=== PATIENT | female | born 1990 | race Caucasian/White ===

== ENCOUNTER 2016-08-29 12:02 | Emergency (ER) | payer MEDICAID ==
[~2016-08-29] VITALS: Ht 152.4 cm; Wt 49.9 kg
[~2016-08-29 12:02] MED LIST: CALCIUM500 MG PO; FERROUS SULFAT325 M1 PO; FOLATE1 MG PO; MOTRIN800 MG PO; PRENATAL VITAMI1 T10 PO
--- NOTE | 2016-08-29 12:02 | NUR ---
Patient BIBA ACLS, triaged by RN. Waiting for an available bed.
[2016-08-29 12:11] VITALS: BP 129/67
[2016-08-29] MEDS ORDERED: NACL 0.9% 1,000 ML IV SCH (12:13)
[2016-08-29] MEDS ORDERED: ONDANSETRON 4 MG/2 ML VIAL IVP ONE (12:15)
--- NOTE | 2016-08-29 12:20 | NUR ---
PT BIBA - WITNESS SEIZURE LASTING APPROX 1 MIN. PER EMS PT HAD A TONIC CLONIC SEIZURE;PT DENIES ANY PAIN RT NOW;PER EMS PT ADMITTED USING COCAINE;DENIES CP/SOB/N/V/AT THIS TIME;DENIES ANY MEDICAL HX;AAOX4;RAZIA AVCUTE DISTRESS NOTED AT THIS TIME;HOIB ELEVATED;SIDERAILS PADDING APPLIED;SAFETY MEASURES DONE;MD MADE AWARE OF PT'S CONDITION.
--- NOTE | 2016-08-29 12:36 | NUR ---
Patient transferred to bed 6. RN evaluating patient at bedside.
--- NOTE | 2016-08-29 13:46 | NUR ---
PT LYING ON BED;NO ACUTE DISTRESS NOTED AT THIS TIME;WILL CONTINUE TO MONITOR PT.
--- NOTE | 2016-08-29 14:26 | NUR ---
PT AMBULATED TO RESTROOM;NO ACUTE DISTRESS NOTED AT THIS TIME;WILL CONTINUE TO MONITOR PT.
--- NOTE | 2016-08-29 14:37 | NUR ---
PT RESTING ON BED;TALKING TO HER BF AT BEDSIDE ;NO ACUTE DISTRESS NOTED AT THIS TIME;WILL CONTINUE TO MONITOR PT.
[2016-08-29 15:02] VITALS: BP 126/68
== END 2016-08-29 15:00 | disposition home or self-care (01) ==
LOC: MED 12:02
DX: G40.909 Epilepsy, unspecified, not intractable, without status epilepticus (principal); F14.10 Cocaine abuse, uncomplicated; F12.10 Cannabis abuse, uncomplicated
CPT/HCPCS: 36415; 70450; 80053; 80305; 81001; 81025; 82150; 83690; 84146; 85025; 96361; 96374; 99285; J2405; J7030

== ENCOUNTER 2018-02-11 10:57 | Emergency (ER) | payer MEDICAID ==
[~2018-02-11] VITALS: Ht 147.3 cm; Wt 54.4 kg
--- NOTE | 2018-02-11 11:03 | NUR ---
PT AMBULATED TO ER BED 06
[2018-02-11 11:06] VITALS: BP 116/62
--- NOTE | 2018-02-11 11:12 | NUR ---
PATIENT c/o left inferior breast burning type pain x 1 wk; denies injury or discharge. PATIENT STATES PAIN OF 7/10 AT THIS TIME; VSS; PATIENT POSITIONED FOR COMFORT; HOB ELEVATED; BEDRAILS UP X1; BED DOWN. ER MD MADE AWARE OF PT STATUS.
[2018-02-11] MEDS ORDERED: KETOROLAC 60 MG/2 ML VIAL IM ONE (12:15)
[2018-02-11 12:42] VITALS: BP 116/62
== END 2018-02-11 12:43 | disposition home or self-care (01) ==
LOC: MED 10:57
DX: N64.4 Mastodynia (principal)
CPT/HCPCS: 96372; 99283; J1885

== ENCOUNTER 2020-10-01 19:05 | Emergency (ER) | payer MEDICAID, SELFPAY ==
[~2020-10-01] VITALS: Ht 149.9 cm; Wt 58.5 kg
[2020-10-01 19:16] VITALS: BP 131/99
[2020-10-01 19:35] VITALS: BP 141/96
--- NOTE | 2020-10-01 19:43 | NUR ---
ARRIVED TO PATIENT AT BEDSIDE, PATIENT ALERT AND TRACKING WITH EYES, GCS 15. NO COMPLAINTS OF PAIN. PATIENT STATED HAVING AN OCCASSIONAL PRODUCTIVE COUGH WITH A HEADACE FOR X3 DAYS AND GENERALIZED WEAKNESS. PATIENT ON ROOM AIR, DENIES ALL HISTORY AND HOME MEDICATIONS. PATIENT IN NO OBVIOUS SIGNS OF DISTRESS, VS STABLE, WILL CONTINUE TO CLOSELY MONITOR AND FREQUENTLY ROUND. WILL CARRY OUT ORDERS FROM MD.
[2020-10-01] MEDS ORDERED: ALBUTEROL HFA MDI 90 MCG/ACTUATION 8 GM INH ONE (20:15)
[2020-10-01] MEDS ORDERED: predniSONE 20 MG TAB PO ONE (20:55)
[2020-10-01] MEDS ORDERED: ALBUTEROL SULFATE/IPRATROPIU 3 ML SOL IH ONE (21:10)
--- NOTE | 2020-10-01 21:23 | NUR ---
HHN TX GIVEN ORDERED. PT TOLERATED TX WELL. NO ADVERSE REACTION. SPO2 99% ON ROOM AIR. WILL CONTINUE TO MONITOR PT.
[2020-10-01] MEDS ORDERED: PRED20TA5 PO (21:58)
[2020-10-01] MEDS ORDERED: ALBU0.0912 IH (21:58)
--- NOTE | 2020-10-01 22:18 | NUR ---
Patient discharged with v/s stable. Written and verbal after care instructions given and explained. Patient alert, oriented and verbalized understanding of instructions. Ambulatory with steady gait. All questions addressed prior to discharge. ID band removed. Patient advised to follow up with PMD. Rx of PREDNISONE AND ALBUTEROL given. Patient educated on indication of medication including possible reaction and side effects. Opportunity to ask questions provided and answered.
== END 2020-10-01 22:18 | disposition home or self-care (01) ==
LOC: MED 19:05
DX: J45.901 Unspecified asthma with (acute) exacerbation (principal); Z20.822 Contact with and (suspected) exposure to COVID-19; R07.89 Other chest pain; R51.9 Headache, unspecified; Z79.899 Other long term (current) drug therapy
CPT/HCPCS: 70360; 71045; 81002; 81025; 87426; 94640; 99284; J7512

== ENCOUNTER 2020-10-09 22:23 | Emergency (ER) | payer MEDICAID, SELFPAY ==
[~2020-10-09] VITALS: Ht 144.8 cm; Wt 59.0 kg
[~2020-10-09 22:23] MED LIST changes: +ALBU0.0912 IH; -CALCIUM500 MG PO; -FERROUS SULFAT325 M1 PO; -FOLATE1 MG PO; -MOTRIN800 MG PO; +PRED20TA5 PO; -PRENATAL VITAMI1 T10 PO
[2020-10-09 22:32] VITALS: BP 130/91
--- NOTE | 2020-10-09 22:43 | NUR ---
PT AMBULATED TO BED 1
--- NOTE | 2020-10-09 22:45 | NUR ---
30 Y/O FEMALE CAME TO THE ED C/O COUGH. PT STATES "I HAVE A SHARP CHEST PAIN OF 5/10 DUE TO ME COUGHING TOO MUCH TODAY. I ALSO HAVE PAIN IN MY BACK." PT HAS WHEZES UPON AUSCULTATION, AND PRODUCTIVE COUGH. AAOX4 WITH EVEN AND STEADY GAIT; HR EVEN AND REGULAR; PT DENIES ANY FEVER, CP, SOB, OR COUGH AT THIS TIME; VSS; PATIENT POSITIONED FOR COMFORT; HOB ELEVATED; BEDRAILS UP X2; BED DOWN. ER MADE AWARE OF PT STATUS. Addendum: 10/09/20 at 2314 by [email or web address] BREA PM:VIMAL
[2020-10-09] MEDS ORDERED: methylPREDNISolone SS 125 MG/2 ML VIAL IM ONE (23:55)
[2020-10-09] MEDS ORDERED: IBUPROFEN 400 MG TAB PO ONE (23:55)
[2020-10-09] MEDS ORDERED: ALBUTEROL SULFATE/IPRATROPIU 3 ML SOL IH ONE (23:55)
[2020-10-10] MEDS ORDERED: PRON INH (00:41)
[2020-10-10] MEDS ORDERED: NEBU1KIT2 MC (00:41)
[2020-10-10] MEDS ORDERED: PRED20TA5 PO (00:41)
--- NOTE | 2020-10-10 01:14 | NUR ---
FATOU DONE AND WALKED TO LAB. HANDED TO CEE GREER AT ASSISTANT TRACK COACH.
--- NOTE | 2020-10-10 01:35 | NUR ---
Patient discharged with v/s stable. Written and verbal after care instructions given and explained. Patient verbalized understanding. Ambulatory with steady gait. All questions addressed prior to discharge. Advised to follow up with PMD.
[2020-10-10 01:59] VITALS: BP 130/91
== END 2020-10-10 01:35 | disposition home or self-care (01) ==
LOC: MED 22:23
DX: R05 Cough (principal); Z20.822 Contact with and (suspected) exposure to COVID-19; R06.2 Wheezing; Z79.899 Other long term (current) drug therapy
CPT/HCPCS: 71045; 81025; 87426; 94640; 96372; 99283; J2930

== ENCOUNTER 2020-10-29 14:53 | Emergency (ER) | payer MEDICAID, SELFPAY ==
[~2020-10-29] VITALS: Ht 144.8 cm; Wt 58.1 kg
[~2020-10-29 14:53] MED LIST changes: +NEBU1KIT2 MC; +PRON INH
[2020-10-29 15:05] VITALS: BP 135/101
[2020-10-29] MEDS ORDERED: LORazepam 1 MG TAB PO ONE (15:25)
--- NOTE | 2020-10-29 15:27 | NUR ---
30 Y/O FEMALE BIB FAMILY C/O COUGH, HEADACHE 7/10 DESCRIBES ACHING NON-RADIATING, AND DIZZINESS X 3 DAYS. COVID TESTED NEGATIVE 3 DAYS AGO. PT DENIES FEVER/CHILLS, STATES +N/-V. PMH: ANXIETY, ASTHMA NKA
--- NOTE | 2020-10-29 15:35 | NUR ---
surgical technician at pt bedside.
--- NOTE | 2020-10-29 16:11 | NUR ---
EMT at pt bedside for EKG.
[2020-10-29 16:18] LABS: ANION GAP 13.9 (8-16); CARBON DIOXIDE 26.6 mmol/L (21-32); CREATININE 0.7 mg/dL (0.6-1.3); POTASSIUM 3.5 mmol/L (3.5-5.1)
[2020-10-29] MEDS ORDERED: HYDR25CA1 PO (16:44)
[2020-10-29] MEDS ORDERED: ALBU0.0912 IH (16:44)
[2020-10-29] MEDS ORDERED: ACETAMINOPHEN 325 MG TAB PO ONE (16:50)
[2020-10-29] MEDS ORDERED: ACETAMINOPHEN 325 MG TAB ONE (16:53)
[2020-10-29 16:59] VITALS: BP 135/101
--- NOTE | 2020-10-29 17:03 | NUR ---
Patient discharged with v/s stable. Written and verbal after care instructions given ANXIETY AND ASTHMA and explained. Patient alert, oriented and verbalized understanding of instructions. Ambulatory with steady gait. All questions addressed prior to discharge. ID band removed. Patient advised to follow up with PMD. Rx of VISTRAIL 25MG PO TID PRN ANXIETY, AND ALBUTEROL 1-2 PUFFS 4-6H PRN SOB/ASTHMA given. Patient educated on indication of medication including possible reaction and side effects. Opportunity to ask questions provided and answered.
== END 2020-10-29 17:03 | disposition home or self-care (01) ==
LOC: MED 14:53
DX: R07.89 Other chest pain (principal); F41.9 Anxiety disorder, unspecified; R51.9 Headache, unspecified; Z79.899 Other long term (current) drug therapy
CPT/HCPCS: 36415; 71045; 80048; 85379; 93005; 99285

== ENCOUNTER 2020-12-06 05:50 | Emergency (ER) | payer MEDICAID, SELFPAY ==
[~2020-12-06] VITALS: Ht 152.4 cm; Wt 59.0 kg
[~2020-12-06 05:50] MED LIST changes: +HYDR25CA1 PO
[2020-12-06 05:55] VITALS: BP 123/75
--- NOTE | 2020-12-06 05:55 | NUR ---
TO BED AMBULATORY
[2020-12-06] MEDS ORDERED: ALBUTEROL 0.083% 2.5 MG/3 ML NEBU INH ONE (06:05)
[2020-12-06] MEDS ORDERED: ALBUTEROL SULFATE/IPRATROPIU 3 ML SOL IH ONE (06:05)
[2020-12-06] MEDS ORDERED: predniSONE 20 MG TAB PO ONE (06:05)
--- NOTE | 2020-12-06 06:05 | NUR ---
PT BIB SELF FOR C/O SOB SINCE LAST NIGHT WITH A "BURNING" PAIN 10/10 IN HER CHEST THAT RADIATES TO HER UPPER BACK. PT REPORTS HX OF ASTHMA AND UTILIZED INHALER WITHOUT RELIEF. O2 97% ON ROOM AIR. CAP REFILL < 3 SECONDS. PT ABLE TO SPEAK IN FULL SENTENCES WITHOUT DIFFICULTY. NOTABLE INSPIRATORY WHEEZING. REPORTS + N/V, DENIES BLOOD IN EMESIS. DENIES DIARRHEA AND COUGH. MED HX: ASTHMA ALLERGIES: NKA
--- NOTE | 2020-12-06 06:08 | NUR ---
ERMD AT BEDSIDE.
[2020-12-06] MEDS ORDERED: KETOROLAC 60 MG/2 ML VIAL IM ONE (06:10)
--- NOTE | 2020-12-06 06:16 | NUR ---
RT AT BEDSIDE.
[2020-12-06] MEDS ORDERED: PRED20TA5 PO (06:35)
[2020-12-06] MEDS ORDERED: ALBU0.0912 INH (06:35)
--- NOTE | 2020-12-06 06:37 | NUR ---
PT REPORTS FEELING BETTER. NO AUDIBLE WHEEZES NOTED. BILATERAL LUNG SOUNDS CLEAR.
--- NOTE | 2020-12-06 06:42 | NUR ---
Patient discharged with v/s stable. Written and verbal after care instructions given and explained. Patient alert, oriented and verbalized understanding of instructions. Ambulatory with steady gait. All questions addressed prior to discharge. ID band removed. Patient advised to follow up with PMD. Rx of PROVENTIL AND PREDNISONE given. Patient educated on indication of medication including possible reaction and side effects. Opportunity to ask questions provided and answered.
== END 2020-12-06 06:42 | disposition home or self-care (01) ==
LOC: MED 05:50
DX: J45.901 Unspecified asthma with (acute) exacerbation (principal); Z79.899 Other long term (current) drug therapy
CPT/HCPCS: 94640; 96372; 99283; J1885; J7512; J7613

== ENCOUNTER 2021-01-07 11:02 | Emergency (ER) | payer MEDICAID ==
[~2021-01-07] VITALS: Ht 152.4 cm; Wt 59.0 kg
[~2021-01-07 11:02] MED LIST changes: +ALBU0.0912 INH
[2021-01-07 11:19] VITALS: BP 138/89
[2021-01-07] MEDS ORDERED: PRON INH (12:45)
--- NOTE | 2021-01-07 13:24 | NUR ---
COVID SWAB DONE
[2021-01-07 13:27] VITALS: BP 138/89
--- NOTE | 2021-01-07 13:46 | NUR ---
PHILIP ASENCIO COLLECTED AND WALKED TO LAB
--- NOTE | 2021-01-07 13:49 | NUR ---
NO NURSING INTERVENTIONS DONE
== END 2021-01-07 13:27 | disposition home or self-care (01) ==
LOC: MED 11:02
DX: R05 Cough (principal); Z20.822 Contact with and (suspected) exposure to COVID-19; M79.10 Myalgia, unspecified site; R51.9 Headache, unspecified; J45.909 Unspecified asthma, uncomplicated
CPT/HCPCS: 99283; U0003

== ENCOUNTER 2021-10-09 18:24 | Emergency (ER) | payer MEDICAID ==
[~2021-10-09] VITALS: Ht 147.3 cm; Wt 60.8 kg
--- NOTE | 2021-10-09 18:25 | NUR ---
called to triage no answer in lobby or outside
[2021-10-09 18:38] VITALS: BP 143/96
--- NOTE | 2021-10-09 18:51 | NUR ---
31Y/O FEMALE BIB C/O COUGH, CONGESTION AND WHEEZING X2 WEEKS, REPORTS TAKING THERAFLU AND NYQUIL WITH NO RELIEF. REPORTS ONE EPISODE OF SUBJECTIVE FEVER AT THE START OF THE 2 WEEKS, NO FEVER SINCE. STATES THAT 2 WEEKS AGO SHE WENT INTO CONTACT WITH A COWORKER SICK WITH SIMILAR SYMPTOMS. STATES THAT SHE RAN OUT OF ALBUTEROL 2 WEEKS AGO, PMH: ASTHMA NKA
--- NOTE | 2021-10-09 18:55 | NUR ---
DR STONER AT BEDSIDE FOR FURTHER EVAL
[2021-10-09] MEDS ORDERED: DEXAMETHASONE 10 MG/ML VIAL IM ONE (19:00)
[2021-10-09] MEDS ORDERED: ALBUTEROL 0.083% 2.5 MG/3 ML NEBU INH ONE (19:00)
[2021-10-09] MEDS ORDERED: ALBUTEROL SULFATE/IPRATROPIU 3 ML SOL IH ONE ×2 (19:00)
--- NOTE | 2021-10-09 19:09 | NUR ---
RAD AT BEDSIDE
--- NOTE | 2021-10-09 19:10 | NUR ---
RT AT BEDSIDE FOR BREATHING TREATMENT
--- NOTE | 2021-10-09 19:21 | NUR ---
Pt report given to GISSEL ALY. Transfer of care at this time.
--- NOTE | 2021-10-09 19:21 | NUR ---
Brent kenyon in ED - 10/09/21 at 1921 by CAMILLE Pt report given to DEREK ALVARENGA. Transfer of care at this time.
--- NOTE | 2021-10-09 19:23 | NUR ---
Brent kenyon in [facility] - 10/09/21 at 1924 by [email or web address] TRANSFER OF CARE REPORT GIVEN BY JERMAIN KUHN
[2021-10-09] MEDS ORDERED: PRED20TA5 PO (20:34)
[2021-10-09] MEDS ORDERED: ALBU3SOL30 IH (20:34)
[2021-10-09] MEDS ORDERED: ALBU0.0912 IH (20:34)
[2021-10-09 20:49] VITALS: BP 143/96
--- NOTE | 2021-10-09 20:50 | NUR ---
Patient discharged with v/s stable. Written and verbal after care instructions given and explained. Patient alert, oriented and verbalized understanding of instructions. Ambulatory with steady gait. All questions addressed prior to discharge. ID band removed. Patient advised to follow up with PMD. Rx of ALBUTEROL SULFATE HFA MDI, ALBUTEROL SULFATE 3 PA, AND DELTASONE given. Patient educated on indication of medication including possible reaction and side effects. Opportunity to ask questions provided and answered. VSS, A/OX4, UNLABORED BREATHING, AMBULATORY, AND CALM DEMEANOR.
== END 2021-10-09 20:48 | disposition home or self-care (01) ==
LOC: MED 18:24
DX: J45.901 Unspecified asthma with (acute) exacerbation (principal); Z79.899 Other long term (current) drug therapy
CPT/HCPCS: 71045; 94640; 96372; 99283; J1100; J7613